=== PATIENT | male | born 1990 | race Caucasian/White ===

== ENCOUNTER 2017-01-04 03:29 | Emergency (ER) | payer SELFPAY ==
[~2017-01-04] VITALS: Ht 172.7 cm; Wt 74.9 kg
[2017-01-04 03:42] VITALS: Ht 172.7 cm; Wt 74.9 kg
== END 2017-01-04 04:08 | disposition left against medical advice (07) ==
LOC: FTE 03:29
DX: Z53.21 Procedure and treatment not carried out due to patient leaving prior to being seen by health care provider (principal)